=== PATIENT | female | born 1945 | race Caucasian/White ===

== ENCOUNTER 2022-04-22 03:17 | Inpatient (IN) ==
[2022-04-22] MEDS ORDERED: traMADol 50 MG TABLET PO ONE (03:50)
[2022-04-22] MEDS ORDERED: METHOCARBAMOL 500 MG TABLET PO ONE (03:50)
[2022-04-22] MEDS ORDERED: KETOROLAC 60 MG/2 ML VIAL IM ONE (03:50)
[2022-04-22] MEDS ORDERED: ACETAMINOPHEN 325 MG TABLET PO ONE (03:50)
--- NOTE | 2022-04-22 04:01 | Emergency Department Note ---
HPI General Chief complaint: Extremity Injury, Lower Stated complaint: hip, back and legs pain Time Seen by Provider: 04/22/22 03:21 Source: patient Mode of arrival: wheelchair Limitations: no limitations History of Present Illness HPI Narrative: Narrative: This is a 77-year-old female with a history of SI pain and lower back pain presents to the emergency department with worsening pain in her legs. She reports she has pain in her lower back, pelvis and thighs. It radiates down the front of her thighs. She denies any new focal weakness but states she has limitations secondary to her pain. She denies any bowel or bladder incontinence, no fevers or chills. Patient did have an MRI about 10 days ago Which showed multilevel. Multilevel facet arthropathy and discogenic disease most pronounced at L4 and L5 there was a left sacral insufficiency fracture and chronic superior endplate fracture of L5. Patient saw interventional pain consultants 2 days ago and was given a Toradol injection. Patient is concerned that she can no longer take care of herself and wants to be placed in a penitentiary. Patient's sister has been trying to help with states she needs more advanced professional help with her activities of daily living. The patient's primary care provider sent referrals for nursing homes. Patient states she came in tonight because she cannot go to the bathroom on her own. Patient has been taking Robaxin and tramadol for her symptoms she did not take her dose tonight. Patient denies any new falls since her MRI bowel or bladder incontinence. Patient does report that she has been somewhat constipated. Related Data Home Medications Medication Instructions Recorded Confirmed acetaminophen 500 mg capsule See Rx Instructions PO PRN 02/02/21 04/22/22 cholecalciferol (vitamin D3) 50 50 mcg PO QDAY 02/02/21 04/22/22 mcg (2,000 unit) capsule coenzyme Q10 100 mg capsule 200 mg PO BID 02/02/21 04/22/22 docusate sodium [Stool Softener] 1 ea PO QDAY 02/02/21 04/22/22 losartan 100 1 tab PO QDAY 02/02/21 04/22/22 mg-hydrochlorothiazide 25 mg tablet omeprazole 40 mg capsule,delayed 40 mg PO QDAY 02/02/21 04/22/22 release sennosides-docusate sodium 1 tab-cap PO .EOD 02/02/21 04/22/22 [Senokot-S] sucralfate 1 gram tablet 1 g PO QID 02/02/21 04/22/22 pravastatin 40 mg tablet 40 mg PO DAILY 04/22/22 04/22/22 simethicone 80 mg chewable tablet 80 mg PO QHS PRN Gastric Reflux 04/22/22 0 04/22/22 (Gas Relief (simethicone)) tramadol 50 mg tablet 50 mg PO QIDP PRN Pain 04/22/22 04/22/22 Previous Rx's Medication Instructions Recorded methocarbamol 750 mg tablet 750 mg PO BID PRN muscle spasm #90 11/17/21 tabs Allergies Allergy/AdvReac Type Severity Reaction Status Date / Time codeine Allergy Intermediate SOB/asthma Verified 04/24/22 06:58 morphine Allergy Intermediate SOB/asthma Verified 04/24/22 06:58 aspirin Allergy Mild skin rash Verified 04/24/22 06:58 bacitracin Allergy Mild skin rash Verified 04/24/22 06:58 [From Neosporin ([id number])] bupivacaine Allergy Mild skin rash Verified 04/24/22 06:58 cefazolin Allergy Mild skin rash Verified 04/24/22 06:58 doxycycline Allergy Mild skin rash Verified 04/24/22 06:58 [id number] [From VoSol-HC] Allergy Mild skin Verified 04/24/22 06:58 rash/hives griseofulvin Allergy Mild skin rash Verified 04/24/22 06:58 [From Grifulvin V] hydrocortisone Allergy Mild skin Verified 04/24/22 06:58 [From VoSol-HC] rash/hives hydromorphone [From Dilaudid] Allergy Mild skin rash Verified 04/24/22 06:58 ketoconazole Allergy Mild rash Verified 04/24/22 06:58 metoclopramide [From Reglan] Allergy Mild skin Verified 04/24/22 06:58 rash/tongue movements Neomycin Allergy Mild skin rash Verified 04/24/22 06:58 nystatin [From Mycostatin] Allergy Mild skin rash Verified 04/24/22 06:58 ofloxacin [From Floxin] Allergy Mild skin rash Verified 04/24/22 06:58 oxycodone Allergy Mild skin rash Verified 04/24/22 06:58 pentazocine [From Talwin] Allergy Mild skin rash Verified 04/24/22 06:58 piroxicam [From Feldene] Allergy Mild skin rash Verified 04/24/22 06:58 polymyxin B Allergy Mild skin rash Verified 04/24/22 06:58 [From Neosporin ([id number])] promethazine Allergy Mild skin rash Verified 04/24/22 06:58 Sulfa (Sulfonamide Allergy Mild skin Verified 04/24/22 06:58 Antibiotics) rash/hives tobramycin Allergy Mild jg Verified 04/24/22 06:58 rash/eye problems trolamine salicylate Allergy Mild skin rash Verified 04/24/22 06:58 [From Aspercreme] clindamycin Allergy Unknown unknown Verified 04/22/22 03:30 metronidazole Allergy Unknown unknown Verified 04/22/22 03:30 Review of Systems ROS ROS Narrative: Narrative: All systems ED: reviewed and negative except as stated. [facility] Narrative Patient History Narrative: Narrative: Medical/Surgical/Family History All Active Problems (Updated 04/22/22 @ 07:08 by Craig Olea MD) Cramp in muscle (Acute) Acute UTI (Acute) Acute hyponatremia (Acute) Acute hypokalemia (Acute) Sacroiliitis (Acute) Sacroiliac joint pain (Chronic) Facet arthropathy (Chronic) Scoliosis (Chronic) Degenerative disc disease (Chronic) Lumbar spondylosis (Chronic) Heartburn (Chronic) High blood pressure (Chronic) Bronchitis (Chronic) Left buttock pain (Chronic) Dislocation of left shoulder joint (Chronic) Hernia (Chronic) Heel spur (Chronic) Sciatica (Chronic) Low back pain (Chronic) Medical History (Updated 04/22/22 @ 07:08 by Craig Olea MD) Bronchitis Degenerative disc disease Dislocation of left shoulder joint Facet arthropathy Heartburn Heel spur Hernia High blood pressure Left buttock pain Low back pain Lumbar spondylosis Sacroiliac joint pain Sciatica Scoliosis Surgical History (Updated 02/02/21 @ 10:40 by Vilma Muñoz) History of cholecystectomy (~1977) History of foot surgery (~1974) 1974 heel spur removal, bilateral; 2004 left foot tendon repair History of hernia repair (~2004) 2004; 2008; 2012 History of shoulder surgery 2003 left; 2010 right History of sinus surgery 1980s Garrett Aleksey/left History of total left knee replacement (TKR) (~2000) History of total right knee replacement (~2005) History of tubal ligation (~1979) History of varicose vein ligation (~1998) Family History (Updated 02/02/21 @ 10:53 by Vilma Muñoz) Mother High blood pressure Arthritis Father High blood pressure Arthritis Heart disease Brother High blood pressure Arthritis Heart disease Sister High blood pressure Arthritis Diabetes Family/Other Heart disease Grandparent Social History Smoking Status: Never smoker Alcohol Intake Frequency: does not drink Substance Use: does not use Exam Narrative Narrative: Narrative: Vital signs noted General: Awake. Alert. Appears tired and frustrated HEENT: NCAT Neck: No cervical spinal tenderness to palpation Cardiovascular: RRR. No murmur. No rubs. No gallops. Respiratory: No respiratory distress. Breath sounds equal. Lungs clear. Gastrointestinal: Soft. No tenderness Musculoskeletal: Tenderness to palpation in the anterior thighs, there is pain pelvis her pelvis is stable she has tenderness to palpation throughout the midline and paraspinal muscles of the lumbar spine her strength at the ankle knee and hip is symmetric sensation to light touch is intact Skin: Loose redundant skin and soft tissue General Limitations: no limitations Course Vital Signs Vital signs: Vital Signs Temperature 97.6 F 04/22/22 03:20 Pulse Rate 100 H 04/22/22 03:20 Respiratory Rate 20 04/22/22 03:20 Blood Pressure 133/94 04/22/22 03:20 Pulse Oximetry (%) 100 04/22/22 03:20 Oxygen Delivery Method 04/22/22 03:20 Temperature 97.7 F 04/24/22 04:00 Pulse Rate 77 04/24/22 04:00 Respiratory Rate 16 04/24/22 04:00 Blood Pressure 93/62 04/24/22 04:00 Pulse Oximetry (%) 98 04/24/22 04:00 Oxygen Delivery Method 04/24/22 04:00 [facility] Narrative Medical decision making narrative: Narrative: Patient presents to the emergency department with bilateral thigh pain and back pain other complaints of pain. She reports that she is having a difficult time caring for herself and her sister who is bedside expressed of the same concerns. Patient had recent MRI which was reviewed there is been no other traumatic events since his MRI was obtained. The MRI is without any evidence of cord compression or cauda equina. Given her worsening weakness and cramping- like pain medical and metabolic work-up was initiated. Patient was found to be hyponatremic at 119 and hypokalemic at 2.7 her magnesium is also 1.5. I do feel that these could be exacerbating the patient's underlying chronic pain and muscle cramping. The cause of her hyponatremia is unclear she may be slightly hypovolemic but not severely dehydrated. I wonder if the tramadol that she was recently prescribed could be a culprit. Patient is not on hydrochlorothiazide or any other diuretics. In addition patient's urinalysis concerning for infection she is without systemic symptoms but I do feel that given her weakness and age she should be treated. She is prescribed Macrobid for this. Patient will be admitted to the hospitalist for further work-up and evaluation of her hyponatremia, hypokalemia and lower extremity pain. Lab Data Result diagrams: 04/22/22 04:28 04/24/22 05:07 Labs: Lab Results 04/22/22 04/22/22 04/22/22 Range/Units 04:28 04:28 04:28 WBC 8.9 (4.5-11.0) K/mcL RBC 4.26 (3.59-5.38) M/mcL Hgb 13.7 (11.2-15.7) g/dL Hct 37.7 (34.1-44.9) % POC Hct (36-48) MCV 88.5 (80.0-100.0) fL MCH 32.2 (26.0-34.0) pg MCHC 36.3 H (31.0-36.0) g/dL RDW 11.8 (11.5-14.5) % Plt Count 369 (140-440) K/mcL MPV 7.9 (7.4-10.4) fL Immature Gran % (Auto) 1.6 H (0.0-0.5) % Neut % (Auto) 76.9 (38.0-78.0) % Lymph % (Auto) 10.4 L (15.5-49.0) % [place] % (Auto) 9.8 (1.0-12.0) % Eos % (Auto) 1.0 (0.0-7.0) % Baso % (Auto) 0.3 (0.0-2.0) % Lymph # (Auto) 0.92 L (1.50-4.80) K/mcL [place] # (Auto) 0.87 (0.10-0.90) K/mcL Eos # (Auto) 0.09 (0.00-0.70) K/mcL Baso # (Auto) 0.03 (0.00-0.30) K/mcL Immature Gran # 0.14 H (0.00-0.05) K/mcl Absolute Neutrophils 6.96 (1.80-8.00) K/mcL POC Sodium (133-145) POC Potassium (3.3-5.1) POC Chloride (96-108) POC Total CO2 (22-30) POC BUN (6-20) POC Creatinine (0.6-1.2) POC Glucose (70-105) Osmolality 257 L (280-300) mOSM/kg POC WB Ioniz Calcium (1.16-1.32) Magnesium 1.5 L (1.6-2.5) mg/dL Total Bilirubin 0.6 (0.1-1.0) mg/dL Direct Bilirubin 0.2 (<0.3) mg/dL AST 16 (<32) U/L ALT 11 (<40) U/L Alkaline Phosphatase 173 H (39-117) U/L Total Protein 6.4 (5.9-8.4) gm/dL Albumin 4.0 (3.2-5.2) gm/dL Globulin 2.4 (2.2-3.7) gm/dL Urine Color Urine Appearance (Clear) Urine pH (5.0-9.0) Ur Specific Bath (1.000-1.035) Urine Protein (Negative) mg/dL Urine Glucose (UA) (Negative) mg/dL Urine Ketones (Negative) mg/dL Urine Occult Blood (Negative) mg/dL Urine Nitrate (Negative) Urine Bilirubin (Negative) mg/dL Urine Urobilinogen mg/dL Ur Leukocyte Esterase (Negative) /uL Urine RBC (0-3) /hpf Urine WBC (0-4) /hpf Ur Squamous Epith Cells (0-4) /hpf Ur Transition Epith Cell (0-2) /hpf Amorphous Crystals (None) /hpf Urine Bacteria (0) /hpf Urine Mucus (None) /hpf Ur Culture Indicated? Urine Osmolality (80-1000) mOSM/kg Ur Random Creatinine (28.0-217.0) mg/dL Ur Random Sodium mmol/L 04/22/22 04/22/22 04/22/22 Range/Units 04:31 04:31 04:31 WBC (4.5-11.0) K/mcL RBC (3.59-5.38) M/mcL Hgb (11.2-15.7) g/dL Hct (34.1-44.9) % POC Hct (36-48) MCV (80.0-100.0) fL MCH (26.0-34.0) pg MCHC (31.0-36.0) g/dL RDW (11.5-14.5) % Plt Count (140-440) K/mcL MPV (7.4-10.4) fL Immature Gran % (Auto) (0.0-0.5) % Neut % (Auto) (38.0-78.0) % Lymph % (Auto) (15.5-49.0) % [place] % (Auto) (1.0-12.0) % Eos % (Auto) (0.0-7.0) % Baso % (Auto) (0.0-2.0) % Lymph # (Auto) (1.50-4.80) K/mcL [place] # (Auto) (0.10-0.90) K/mcL Eos # (Auto) (0.00-0.70) K/mcL Baso # (Auto) (0.00-0.30) K/mcL Immature Gran # (0.00-0.05) K/mcl Absolute Neutrophils (1.80-8.00) K/mcL POC Sodium (133-145) POC Potassium (3.3-5.1) POC Chloride (96-108) POC Total CO2 (22-30) POC BUN (6-20) POC Creatinine (0.6-1.2) POC Glucose (70-105) Osmolality (280-300) mOSM/kg POC WB Ioniz Calcium (1.16-1.32) Magnesium (1.6-2.5) mg/dL Total Bilirubin (0.1-1.0) mg/dL Direct Bilirubin (<0.3) mg/dL AST (<32) U/L ALT (<40) U/L Alkaline Phosphatase (39-117) U/L Total Protein (5.9-8.4) gm/dL Albumin (3.2-5.2) gm/dL Globulin (2.2-3.7) gm/dL Urine Color Yellow Urine Appearance Hazy A (Clear) Urine pH 5.0 (5.0-9.0) Ur Specific Bath 1.015 (1.000-1.035) Urine Protein Negative (Negative) mg/dL Urine Glucose (UA) Negative (Negative) mg/dL Urine Ketones 5 A (Negative) mg/dL Urine Occult Blood 0.03 (Negative) mg/dL Urine Nitrate Negative (Negative) Urine Bilirubin Negative (Negative) mg/dL Urine Urobilinogen Negative mg/dL Ur Leukocyte Esterase 500 A (Negative) /uL Urine RBC 7 H (0-3) /hpf Urine WBC 64 H (0-4) /hpf Ur Squamous Epith Cells 1 (0-4) /hpf Ur Transition Epith Cell 2 (0-2) /hpf Amorphous Crystals Few A (None) /hpf Urine Bacteria None (0) /hpf Urine Mucus Few A (None) /hpf Ur Culture Indicated? yes Urine Osmolality 400 (80-1000) mOSM/kg Ur Random Creatinine 73.3 (28.0-217.0) mg/dL Ur Random Sodium 32 mmol/L 04/22/22 Range/Units 04:33 WBC (4.5-11.0) K/mcL RBC (3.59-5.38) M/mcL Hgb (11.2-15.7) g/dL Hct (34.1-44.9) % POC Hct 40.0 (36-48) MCV (80.0-100.0) fL MCH (26.0-34.0) pg MCHC (31.0-36.0) g/dL RDW (11.5-14.5) % Plt Count (140-440) K/mcL MPV (7.4-10.4) fL Immature Gran % (Auto) (0.0-0.5) % Neut % (Auto) (38.0-78.0) % Lymph % (Auto) (15.5-49.0) % [place] % (Auto) (1.0-12.0) % Eos % (Auto) (0.0-7.0) % Baso % (Auto) (0.0-2.0) % Lymph # (Auto) (1.50-4.80) K/mcL [place] # (Auto) (0.10-0.90) K/mcL Eos # (Auto) (0.00-0.70) K/mcL Baso # (Auto) (0.00-0.30) K/mcL Immature Gran # (0.00-0.05) K/mcl Absolute Neutrophils (1.80-8.00) K/mcL POC Sodium 119 L (133-145) POC Potassium 2.8 L* (3.3-5.1) POC Chloride 81 L (96-108) POC Total CO2 27.0 (22-30) POC BUN 18 (6-20) POC Creatinine 0.8 (0.6-1.2) POC Glucose 105 (70-105) Osmolality (280-300) mOSM/kg POC WB Ioniz Calcium 1.11 L (1.16-1.32) Magnesium (1.6-2.5) mg/dL Total Bilirubin (0.1-1.0) mg/dL Direct Bilirubin (<0.3) mg/dL AST (<32) U/L ALT (<40) U/L Alkaline Phosphatase (39-117) U/L Total Protein (5.9-8.4) gm/dL Albumin (3.2-5.2) gm/dL Globulin (2.2-3.7) gm/dL Urine Color Urine Appearance (Clear) Urine pH (5.0-9.0) Ur Specific [place] (1.000-1.035) Urine Protein (Negative) mg/dL Urine Glucose (UA) (Negative) mg/dL Urine Ketones (Negative) mg/dL Urine Occult Blood (Negative) mg/dL Urine Nitrate (Negative) Urine Bilirubin (Negative) mg/dL Urine Urobilinogen mg/dL Ur Leukocyte Esterase (Negative) /uL Urine RBC (0-3) /hpf Urine WBC (0-4) /hpf Ur Squamous Epith Cells (0-4) /hpf Ur Transition Epith Cell (0-2) /hpf Amorphous Crystals (None) /hpf Urine Bacteria (0) /hpf Urine Mucus (None) /hpf Ur Culture Indicated? Urine Osmolality (80-1000) mOSM/kg Ur Random Creatinine (28.0-217.0) mg/dL Ur Random Sodium mmol/L Discharge Plan Patient/Caregiver Discharge Instructions Pt seen by DIRECTOR OF TECHNOLOGY/PA only: No Clinical Impression: Low back pain, Cramp in muscle, Acute UTI, Acute hyponatremia, Acute hypokalemia Patient Disposition: Xfer As Inpt ([facility]) Condition: Fair Discharge Date/Time: 04/22/22 08:57
[2022-04-22 04:38] LABS: POC Calcium, Ionized 1.11 (1.16-1.32); POC Creatinine 0.8 (0.6-1.2); POC Potassium 2.8 (3.3-5.1)
[2022-04-22 05:19] LABS: Basophils # (Auto) 0.03 K/mcL (0.00-0.30); Basophils % (Auto) 0.3 % (0.0-2.0); Eosinophils # (Auto) 0.09 K/mcL (0.00-0.70); Hematocrit 37.7 % (34.1-44.9); Hemoglobin 13.7 g/dL (11.2-15.7); Lymphocytes # (Auto) 0.92 K/mcL (1.50-4.80); Lymphocytes % (Auto) 10.4 % (15.5-49.0); Mean Cell Volume 88.5 fL (80.0-100.0); Mean Corpuscular HGB Conc 36.3 g/dL (31.0-36.0); Mean Platelet Volume 7.9 fL (7.4-10.4); Monocytes # (Auto) 0.87 K/mcL (0.10-0.90); Monocytes % (Auto) 9.8 % (1.0-12.0); Neutrophils % (Auto) 76.9 % (38.0-78.0); Platelet Count 369 K/mcL (140-440); RBC 4.26 M/mcL (3.59-5.38); Red Cell Distribution Width 11.8 % (11.5-14.5); WBC 8.9 K/mcL (4.5-11.0)
[2022-04-22] MEDS ORDERED: POTASSIUM CHLORIDE 20 MEQ PACKET PO ONE (05:25)
[2022-04-22] MEDS ORDERED: 0.9 % SODIUM CHLORIDE 1,000 ML IV ONE (05:25)
[2022-04-22 05:27] LABS: Appearance,Urine HAZY (Clear); Bilirubin,Urine Negative (Negative); Color,Urine YELLOW; Culture Indicated,Urine yes; Glucose,Urine (UA) Negative (Negative); Ketones,Urine 5 mg/dL (Negative); Leukocyte Esterase,Urine 500 /uL (Negative); Mucus,Urine FEW /hpf; Nitrate,Urine Negative (Negative); Protein,Urine Negative (Negative); Specific Gravity,Urine 1.015 (1.000-1.035); Urine Amorphous Crystals FEW /hpf; Urine Blood 0.03 mg/dL (Negative); Urine RBC 7 /hpf (0-3); Urine Squamous Epithelial Cell 1 /hpf (0-4); Urine Transitional Epi Cells 2 /hpf (0-2); Urine WBC 64 /hpf (0-4); Urobilinogen,Urine Negative
[2022-04-22] MEDS ORDERED: NITROFURANTOIN SR 100 MG CAPSULE PO ONE (05:32)
[2022-04-22 05:36] LABS: Bilirubin,Direct 0.2 mg/dL (<0.3); Bilirubin,Total 0.6 mg/dL (0.1-1.0); Globulin 2.4 gm/dL (2.2-3.7)
[2022-04-22 06:36] LABS: Creatinine,Urine Random 73.3 mg/dL (28.0-217.0)
[2022-04-22] MEDS ORDERED: MAGNESIUM SULFATE 2 GM/50 ML BAG IV ONE (06:45)
--- NOTE | 2022-04-22 10:26 | Internal Med History&Physical ---
HPI History of Present Illness Patient information: Note initiated : 04/22/22 at 10:22 am Service Date, if different from initiated Date: [] Patient: Shelby Cifuentes a 77 y/o F admitted on 04/22/22 for hip, back and legs pain. Chief Complaint: [] History of present illness: Ms. Cifuentes is a 77 year old F With history of hip pelvic and back pain for the past couple weeks patient does follow with pain clinic. Patient has increasing back pain that goes down bilateral legs. Patient denies bowel or bladder incontinence she had an MRI 10 days ago showed arthropathy. And some sacral insufficiency fractures. Patient saw pain clinic 2 days ago and was given Toradol injection. Patient has been concern that she can no longer care for self and she has been working on placement with her PCP and family. Work-up in the ER revealed that she was hyponatremic 119 and hypokalemic at 2.7 as well as low mag. May be contributing some to some of her cramping. She is given potassium magnesium and started on fluids. Also concern for UTI. Review of Systems: Pertinent positives as above. Denies headache/fever/chills/nausea/vomiting/chest or abdominal pain/cough/dyspnea/diarrhea. Remaining 10 point review of system reviewed negative PFSH PFSH All Active Problems (Updated 04/22/22 @ 07:08 by Craig Olea MD) Cramp in muscle (Acute) Acute UTI (Acute) Acute hyponatremia (Acute) Acute hypokalemia (Acute) Sacroiliitis (Acute) Sacroiliac joint pain (Chronic) Facet arthropathy (Chronic) Scoliosis (Chronic) Degenerative disc disease (Chronic) Lumbar spondylosis (Chronic) Heartburn (Chronic) High blood pressure (Chronic) Bronchitis (Chronic) Left buttock pain (Chronic) Dislocation of left shoulder joint (Chronic) Hernia (Chronic) Heel spur (Chronic) Sciatica (Chronic) Low back pain (Chronic) Medical History (Updated 04/22/22 @ 07:08 by Craig Olea MD) Bronchitis Degenerative disc disease Dislocation of left shoulder joint Facet arthropathy Heartburn Heel spur Hernia High blood pressure Left buttock pain Low back pain Lumbar spondylosis Sacroiliac joint pain Sciatica Scoliosis Surgical History (Updated 02/02/21 @ 10:40 by Vilma Muñoz) History of cholecystectomy (~1977) History of foot surgery (~1974) 1974 heel spur removal, bilateral; 2004 left foot tendon repair History of hernia repair (~2004) 2004; 2007; 2011 History of shoulder surgery 2003 left; 2010 right History of sinus surgery 1980s Garrett Aleksey/left History of total left knee replacement (TKR) (~2000) History of total right knee replacement (~2005) History of tubal ligation (~1979) History of varicose vein ligation (~1998) Family History (Updated 02/02/21 @ 10:53 by Vilma Muñoz) Mother High blood pressure Arthritis Father High blood pressure Arthritis Heart disease Brother High blood pressure Arthritis Heart disease Sister High blood pressure Arthritis Diabetes Family/Other Heart disease Grandparent Social History (Updated 02/04/21 @ 16:16 by Estlele Skaggs) marital status: single education level: high school occupational status: retired smoking status: Never smoker alcohol intake frequency: does not drink substance use type: does not use MEDS/ALLERGIES Home Medications and Allergies Home Medications Medication Instructions Recorded Confirmed Type acetaminophen 500 mg capsule See Rx Instructions PO PRN 02/02/21 04/22/22 History cholecalciferol (vitamin D3) 50 50 mcg PO QDAY 02/02/21 04/22/22 History mcg (2,000 unit) capsule coenzyme Q10 100 mg capsule 200 mg PO BID 02/02/21 04/22/22 History docusate sodium [Stool Softener] 1 ea PO QDAY 02/02/21 04/22/22 History losartan 100 1 tab PO QDAY 02/02/21 04/22/22 History mg-hydrochlorothiazide 25 mg tablet omeprazole 40 mg capsule,delayed 40 mg PO QDAY 02/02/21 04/22/22 History release sennosides-docusate sodium 1 tab-cap PO .EOD 02/02/21 04/22/22 History [Senokot-S] sucralfate 1 gram tablet 1 g PO QID 02/02/21 04/22/22 History methocarbamol 750 mg tablet 750 mg PO BID PRN muscle spasm #90 11/17/21 04/22/22 Rx tabs pravastatin 40 mg tablet 40 mg PO DAILY 04/22/22 04/22/22 History simethicone 80 mg chewable tablet 80 mg PO QHS PRN Gastric Reflux 04/22/22 04/22/22 History (Gas Relief (simethicone)) tramadol 50 mg tablet 50 mg PO QIDP PRN Pain 04/22/22 04/22/22 History Allergies Allergy/AdvReac Type Severity Reaction Status Date / Time aspirin Allergy Unknown skin rash Verified 04/22/22 03:30 bacitracin Allergy Unknown skin rash Verified 04/22/22 03:30 [From Neosporin ([id number])] bupivacaine Allergy Unknown skin rash Verified 04/22/22 03:30 cefazolin Allergy Unknown skin rash Verified 04/22/22 03:30 clindamycin Allergy Unknown unknown Verified 04/22/22 03:30 codeine Allergy Unknown SOB/asthma Verified 04/22/22 03:30 doxycycline Allergy Unknown skin rash Verified 04/22/22 03:30 [id number] [From VoSol-HC] Allergy Unknown skin Verified 04/22/22 03:30 rash/hives griseofulvin Allergy Unknown skin rash Verified 04/22/22 03:30 [From Grifulvin V] hydrocortisone Allergy Unknown skin Verified 04/22/22 03:30 [From VoSol-HC] rash/hives hydromorphone [From Dilaudid] Allergy Unknown skin rash Verified 04/22/22 03:30 ketoconazole Allergy Unknown rash Verified 04/22/22 03:30 metoclopramide [From Reglan] Allergy Unknown skin Verified 04/22/22 03:30 rash/tongue movements metronidazole Allergy Unknown unknown Verified 04/22/22 03:30 morphine Allergy Unknown SOB/asthma Verified 04/22/22 03:30 Neomycin Allergy Unknown skin rash Verified 04/22/22 03:30 nystatin [From Mycostatin] Allergy Unknown skin rash Verified 04/22/22 03:30 ofloxacin [From Floxin] Allergy Unknown skin rash Verified 04/22/22 03:30 oxycodone Allergy Unknown skin rash Verified 04/22/22 03:30 pentazocine [From Talwin] Allergy Unknown skin rash Verified 04/22/22 03:30 piroxicam [From Feldene] Allergy Unknown skin rash Verified 04/22/22 03:30 polymyxin B Allergy Unknown skin rash Verified 04/22/22 03:30 [From Neosporin ([id number])] promethazine Allergy Unknown skin rash Verified 04/22/22 03:30 Sulfa (Sulfonamide Allergy Unknown skin Verified 04/22/22 03:30 Antibiotics) rash/hives tobramycin Allergy Unknown jg Verified 04/22/22 03:30 rash/eye problems trolamine salicylate Allergy Unknown skin rash Verified 04/22/22 03:30 [From Aspercreme] EXAM Constitutional Vitals: Temp Pulse Resp BP Pulse Ox O2 Del Method 97.6 F 78 14 142/74 98 04/22/22 09:23 04/22/22 09:23 04/22/22 09:23 04/22/22 09:23 04/22/22 09:23 04/22/22 09:23 DATA Data Completed and Pending Labs: Labs from last 24 hours 04/22/22 04/22/22 04/22/22 04:33 04:31 04:31 WBC RBC Hgb Hct POC Hct 40.0 MCV MCH MCHC RDW Plt Count MPV Immature Gran % (Auto) Neut % (Auto) Lymph % (Auto) Granite % (Auto) Eos % (Auto) Baso % (Auto) Lymph # (Auto) Granite # (Auto) Eos # (Auto) Baso # (Auto) Immature Gran # Absolute Neutrophils POC Sodium 119 L POC Potassium 2.8 L* POC Chloride 81 L POC Total CO2 27.0 POC BUN 18 POC Creatinine 0.8 POC Glucose 105 Osmolality POC WB Ioniz Calcium 1.11 L Magnesium Total Bilirubin Direct Bilirubin AST ALT Alkaline Phosphatase Total Protein Albumin Globulin Urine Color Urine Appearance Urine pH Ur Specific Lang[place] Urine Protein Urine Glucose (UA) Urine Ketones Urine Occult Blood Urine Nitrate Urine Bilirubin Urine Urobilinogen Ur Leukocyte Esterase Urine RBC Urine WBC Ur Squamous Epith Cells Ur Transition Epith Cell Amorphous Crystals Urine Bacteria Urine Mucus Ur Culture Indicated? Urine Osmolality 400 Ur Random Creatinine 73.3 Ur Random Sodium 32 04/22/22 04/22/22 04/22/22 04:31 04:28 04:28 WBC RBC Hgb Hct POC Hct MCV MCH MCHC RDW Plt Count MPV Immature Gran % (Auto) Neut % (Auto) Lymph % (Auto) Granite % (Auto) Eos % (Auto) Baso % (Auto) Lymph # (Auto) Granite # (Auto) Eos # (Auto) Baso # (Auto) Immature Gran # Absolute Neutrophils POC Sodium POC Potassium POC Chloride POC Total CO2 POC BUN POC Creatinine POC Glucose Osmolality 257 L POC WB Ioniz Calcium Magnesium 1.5 L Total Bilirubin 0.6 Direct Bilirubin 0.2 AST 16 ALT 11 Alkaline Phosphatase 173 H Total Protein 6.4 Albumin 4.0 Globulin 2.4 Urine Color Yellow Urine Appearance Hazy A Urine pH 5.0 Ur Specific Langdon 1.015 Urine Protein Negative Urine Glucose (UA) Negative Urine Ketones 5 A Urine Occult Blood 0.03 Urine Nitrate Negative Urine Bilirubin Negative Urine Urobilinogen Negative Ur Leukocyte Esterase 500 A Urine RBC 7 H Urine WBC 64 H Ur Squamous Epith Cells 1 Ur Transition Epith Cell 2 Amorphous Crystals Few A Urine Bacteria None Urine Mucus Few A Ur Culture Indicated? yes Urine Osmolality Ur Random Creatinine Ur Random Sodium 04/22/22 04:28 WBC 8.9 RBC 4.26 Hgb 13.7 Hct 37.7 POC Hct MCV 88.5 MCH 32.2 MCHC 36.3 H RDW 11.8 Plt Count 369 MPV 7.9 Immature Gran % (Auto) 1.6 H Neut % (Auto) 76.9 Lymph % (Auto) 10.4 L Granite % (Auto) 9.8 Eos % (Auto) 1.0 Baso % (Auto) 0.3 Lymph # (Auto) 0.92 L Granite # (Auto) 0.87 Eos # (Auto) 0.09 Baso # (Auto) 0.03 Immature Gran # 0.14 H Absolute Neutrophils 6.96 POC Sodium POC Potassium POC Chloride POC Total CO2 POC BUN POC Creatinine POC Glucose Osmolality POC WB Ioniz Calcium Magnesium Total Bilirubin Direct Bilirubin AST ALT Alkaline Phosphatase Total Protein Albumin Globulin Urine Color Urine Appearance Urine pH Ur Specific [place] Urine Protein Urine Glucose (UA) Urine Ketones Urine Occult Blood Urine Nitrate Urine Bilirubin Urine Urobilinogen Ur Leukocyte Esterase Urine RBC Urine WBC Ur Squamous Epith Cells Ur Transition Epith Cell Amorphous Crystals Urine Bacteria Urine Mucus Ur Culture Indicated? Urine Osmolality Ur Random Creatinine Ur Random Sodium A/P Narrative A/P Narrative: A: *subactue on chronic Hyponatremia:2/2 hypovolemia and medications -sodium 119 on admit *other Electrolyte d/o (hypokalemia/hypomagnesemia): *Volume depletion: *chronic pain acute on chronic, back and thigh pain: *Left Sacral insuffiency fx/ L5 endplate fx: *Generalized weakness/deconditioning: *UTI: *HTN/HLD: *GERD: P: -IVF -Replete electrolytes -Follow-up closely with sodium -hold HCTZ for hyponatremia, cont ARB -pain control including robaxin, will trial pregabalin -Rocephin pending UC -Continue home pain medications and as needed IV -PT/OT -CM for placement -ppx: Lovenox/home PPI DNR Time Spent With Patient Time: Total time spent is greater than 50% in coordination of care (as documented) at patient's floor/unit and/or counseling patient: Total time spent with greater than 50% in coordination of care (as documented) at patient's floor/unit and/or counseling patient:: 50 - 70 minutes
[2022-04-22] MEDS ORDERED: SIMETHICONE 80 MG TAB.CHEW PO PRN (10:49)
[2022-04-22] MEDS ORDERED: morphine 4 MG/ML VIAL IV PRN (10:50)
[2022-04-22] MEDS ORDERED: IPRATROPIUM/ALBUTEROL 3 ML AMPUL.NEB NEB PRN (10:50)
[2022-04-22] MEDS ORDERED: ONDANSETRON 4 MG/2 ML VIAL IV PRN (10:50)
[2022-04-22] MEDS ORDERED: MAGNESIUM HYDROXIDE 30 ML ORAL.SUSP PO PRN (10:50)
[2022-04-22] MEDS ORDERED: POTASSIUM CHLORIDE 20 MEQ TABLET PO PRN ×2 (10:50)
[2022-04-22] MEDS ORDERED: POTASSIUM CHLORIDE 40 MEQ in DEXTROSE 5% IN WATER 500 ML IV PRN (10:50)
[2022-04-22] MEDS ORDERED: MAGNESIUM SULFATE 2 GM/50 ML BAG IV PRN (10:50)
[2022-04-22] MEDS ORDERED: POLYETHYLENE GLYCOL 3350 17 GM PACKET PO PRN (10:50)
[2022-04-22] MEDS ORDERED: hydrALAZINE 20 MG/ML VIAL IV PRN (10:50)
[2022-04-22] MEDS ORDERED: HYDROcodone/APAP 5/325MG TABLET PO PRN (10:50)
[2022-04-22] MEDS ORDERED: cefTRIAXone 1 GM in DEXTROSE 5% IN WATER 50 ML IV SCH (11:00)
[2022-04-22] MEDS ORDERED: POTASSIUM CHLORIDE 20 MEQ TABLET PO SCH ×2 (11:05→14:35)
[2022-04-22] MEDS ORDERED: traMADol 50 MG TABLET PO PRN (11:05)
[2022-04-22] MEDS: LOSARTAN 50 MG TABLET PO SCH (11:24)
[2022-04-22] MEDS: PREGABALIN 25 MG CAPSULE PO SCH ×2 (11:24→20:33)
[2022-04-22] MEDS: 0.9 % SODIUM CHLORIDE 1,000 ML IV SCH ×2 (11:25→20:38)
[2022-04-22] MEDS: cefTRIAXone 1 GM VIAL IV SCH (11:25)
[2022-04-22 13:20] LABS: POC Calcium, Ionized 1.12 (1.16-1.32); POC Creatinine 0.7 (0.6-1.2); POC Potassium 3.2 (3.3-5.1)
[2022-04-22] MEDS: SUCRALFATE 1 GM TABLET PO SCH ×3 (14:01→20:33)
[2022-04-22] MEDS: METHOCARBAMOL 750 MG TABLET PO SCH ×2 (14:01→20:33)
[2022-04-22] MEDS: 0.9 % SODIUM CHLORIDE 10 ML SYRINGE IV SCH ×2 (14:02→20:34)
[2022-04-22 18:45] LABS: POC Calcium, Ionized 1.14 (1.16-1.32); POC Creatinine 0.7 (0.6-1.2); POC Potassium 3.7 (3.3-5.1)
[2022-04-22] MEDS ORDERED: SODIUM CHLORIDE 1 GM TABLET PO SCH (19:25)
[2022-04-22] MEDS: SENNOSIDES/DOCUSATE SODIUM 1 TAB TABLET PO SCH (20:34)
[2022-04-23] MEDS: 0.9 % SODIUM CHLORIDE 10 ML SYRINGE IV SCH ×3 (05:16→20:03)
[2022-04-23] MEDS: PREGABALIN 25 MG CAPSULE PO SCH ×3 (05:36→20:03)
[2022-04-23 06:52] LABS: ALT/SGPT 10 U/L (<40); AST/SGOT 17 U/L (<32); Albumin 3.6 gm/dL (3.2-5.2); Albumin/Globulin Ratio 1.8 (1.0-2.3); Alkaline Phosphatase 167 U/L (39-117); Bilirubin,Direct < 0.2 mg/dL (0-0.3); Bilirubin,Total 0.4 mg/dL (0.1-1.0); Blood Urea Nitrogen 12 mg/dL (8-23); Calcium 8.9 mg/dL (8.6-10.4); Carbon Dioxide 24 mmol/L (22-30); Chloride 90 mmol/L (96-108); Glomerular Filtration Rate 89; Glucose 108 mg/dL (70-105); Lactate Dehydrogenase 198 U/L (135-225); Phosphorous 1.3 mg/dL (2.5-4.5); Triglycerides 91 mg/dL (<150); Uric Acid 2.7 mg/dL (2.5-8.0)
--- NOTE | 2022-04-23 08:13 | Internal Med Progress Note ---
SUBJECTIVE Subjective Patient information: Note initiated : 04/23/22 at 8:06 am Service Date, if different from initiated Date: [] Patient: Shelby Cifuentes a 77 y/o F admitted on 04/22/22 for hip, back and legs pain. Chief Complaint: [] Interval history: History of present illness: Ms. Cifuentes is a 77 year old F With history of hip pelvic and back pain for the past couple weeks patient does follow with pain clinic. Patient has increasing back pain that goes down bilateral legs. Patient denies bowel or bladder incontinence she had an MRI 10 days ago showed arthropathy. And some sacral insufficiency fractures. Patient saw pain clinic 2 days ago and was given Toradol injection. Patient has been concern that she can no longer care for self and she has been working on placement with her PCP and family. Work-up in the ER revealed that she was hyponatremic 119 and hypokalemic at 2.7 as well as low mag. May be contributing some to some of her cramping. She is given potassium magnesium and started on fluids. Also concern for UTI. 04/23 She complains of being cold and some leg cramping but otherwise no overnight event or new complaints. Sodium mildly improved but still quite low. Potassium much better. Phosphorus quite low. Constitutional Vitals: Vital Signs Temp Pulse Resp BP Pulse Ox O2 Del Method 97.5 F 104 H 16 104/61 98 04/23/22 04:00 04/23/22 04:00 04/23/22 04:00 04/23/22 04:00 04/23/22 04:00 04/23/22 04:00 Period Temp Pulse Resp BP Sys/Hamilton Pulse Ox O2 Del Method O2 Flow Rate Last 24 Hr 96.3 F-97.8 F 74-104 14-16 97-142/58-75 95-99 Room Air-Room Air Intake and Output 04/22/22 04/23/22 04/23/22 21:59 05:59 13:59 Intake Total 1242 120 Output Total 350 250 Balance 892 -130 Weight 75.892 kg Intake & Output: Intake & Output 04/22/22 04/23/22 04/23/22 21:59 05:59 13:59 Intake Total 1242 120 Output Total 350 250 Balance 892 -130 Weight 75.892 kg Intake: IV 922 Sodium Chloride 0.9% 1,000 ml @ 922 100 mls/hr IV .Q10H [facility] Rx#: [id number] Oral 120 120 GI Tube Flush 200 Output: Void Amount 350 250 Other: Meal Lunch Percent of Meal Consumed 75% Feeding Ability Independent Urine Appearance Clear Clear Urine Color Straw Straw Urine Odor Normal Exam: General: Alert, Awake, No acute Distress Eyes/N/T: EOMI, Head/Neck: neck supple, CV: RRR, No murmurs, Pulm: Clear b/l, no wheezing/rhonchi/rales Abd: soft, nontender, +BS x4 Ext: no clubbing/cyanosis/trace b/l LE edema Neuro: Alert, no focal deficits, moves all extremities, Skin: warm/dry OBJ DATA Labs CBC & Chem 7: 04/22/22 04:28 04/23/22 05:38 Labs: Abnormal Lab Results 04/23/22 04/22/22 04/22/22 05:38 18:43 13:18 MCHC Immature Gran % (Auto) Lymph % (Auto) Lymph # (Auto) Immature Gran # POC Sodium 121 L 120 L Sodium 123 L POC Potassium 3.2 L POC Chloride 84 L 82 L Chloride 90 L Glucose 108 H POC Glucose 130 H 116 H Osmolality POC WB Ioniz Calcium 1.14 L 1.12 L Phosphorus 1.3 L Magnesium Alkaline Phosphatase 167 H Total Protein 5.6 L Globulin 2.0 L Urine Appearance Urine Ketones Ur Leukocyte Esterase Urine RBC Urine WBC Amorphous Crystals Urine Mucus 04/22/22 04/22/22 04/22/22 04:33 04:31 04:28 MCHC Immature Gran % (Auto) Lymph % (Auto) Lymph # (Auto) Immature Gran # POC Sodium 119 L Sodium POC Potassium 2.8 L* POC Chloride 81 L Chloride Glucose POC Glucose Osmolality 257 L POC WB Ioniz Calcium 1.11 L Phosphorus Magnesium Alkaline Phosphatase Total Protein Globulin Urine Appearance Hazy A Urine Ketones 5 A Ur Leukocyte Esterase 500 A Urine RBC 7 H Urine WBC 64 H Amorphous Crystals Few A Urine Mucus Few A 04/22/22 04/22/22 04:28 04:28 MCHC 36.3 H Immature Gran % (Auto) 1.6 H Lymph % (Auto) 10.4 L Lymph # (Auto) 0.92 L Immature Gran # 0.14 H POC Sodium Sodium POC Potassium POC Chloride Chloride Glucose POC Glucose Osmolality POC WB Ioniz Calcium Phosphorus Magnesium 1.5 L Alkaline Phosphatase 173 H Total Protein Globulin Urine Appearance Urine Ketones Ur Leukocyte Esterase Urine RBC Urine WBC Amorphous Crystals Urine Mucus Meds: Medications Acetaminophen (Acetaminophen 325 Mg Tablet) 650 mg PO Q6HP PRN; Protocol PRN Reason: Per Pain Protocol/Fever > 101 Hydrocodone Bitart/Acetaminophen (Hydrocodone/Apap 5/325mg Tablet) 1 tab PO Q4HP PRN PRN Reason: PAIN LEVEL 3-6 Albuterol/Ipratropium (Ipratropium/Albuterol 3 Ml Ampul.Neb) 3 ml NEB Q4HP PRN PRN Reason: Shortness Of Breath Atorvastatin Calcium (Atorvastatin 10 Mg Tablet) [address] [facility] Ceftriaxone Sodium (Ceftriaxone 1 Gm Vial) [address] [facility] Last Admin: 04/22/22 11:25 Dose: 1 gm Enoxaparin Sodium (Enoxaparin 40 Mg/0.4 Ml Syringe) [address] [facility] Hydralazine HCl (Hydralazine 20 Mg/Ml Vial) 0 mg IV Q2HP PRN PRN Reason: Hypertension Potassium Chloride 40 meq/ (Dextrose) 520 mls @ 130 mls/hr IV UD PRN PRN Reason: Potassium < 3 Magnesium Sulfate (Magnesium Sulfate) 2 gm in 50 mls @ 50 mls/hr IV UD PRN PRN Reason: Magnesium </= 1.6 Losartan Potassium (Losartan 50 Mg Tablet) [address] [facility] Last Admin: 04/22/22 11:24 Dose: 100 mg Magnesium Hydroxide (Magnesium Hydroxide 30 Ml Oral.Susp) 30 ml PO DAILYP PRN PRN Reason: Constipation Methocarbamol (Methocarbamol 750 Mg Tablet) [address] [facility] Last Admin: 04/22/22 20:33 Dose: 750 mg Morphine Sulfate (Morphine 4 Mg/Ml Vial) 0 mg IV Q3HP PRN PRN Reason: Pain Omeprazole (Omeprazole 20 Mg Capsule) [address] [facility] Ondansetron HCl (Ondansetron 4 Mg/2 Ml Vial) 4 mg IV Q4HP PRN PRN Reason: Nausea And Vomiting Polyethylene Glycol (Polyethylene Glycol 3350 17 Gm Packet) 17 gm PO DAILYP PRN PRN Reason: Constipation Potassium Chloride (Potassium Chloride 20 Meq Tablet) 40 meq PO UD PRN PRN Reason: Potssium is 3-3.5 Potassium Chloride (Potassium Chloride 20 Meq Tablet) 40 meq PO UD PRN PRN Reason: Potassium < 3 Pregabalin (Pregabalin 25 Mg Capsule) [address] [facility] Last Admin: 04/23/22 05:36 Dose: Not Given Senna/Docusate Sodium (Sennosides/Docusate Sodium 1 Tab Tablet) [address] [facility] Last Admin: 04/22/22 20:34 Dose: 1 tab Simethicone (Simethicone 80 Mg Tab.Chew) 80 mg PO QHS PRN PRN Reason: Gastric Reflux Sodium Chloride (0.9 % Sodium Chloride 10 Ml Syringe) [address] [facility] Last Admin: 04/23/22 05:16 Dose: Not Given Sodium Chloride (Sodium Chloride 1 Gm Tablet) [address] [facility] Sucralfate (Sucralfate 1 Gm Tablet) [address] 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 >not improving nearly as expected with NS & holding hctz, urine studies would corroborate *other Electrolyte d/o (hypokalemia/hypomagnesemia/hypophosphatemia): *Volume depletion: improved *chronic pain acute on chronic, back and thigh pain: *Left Sacral insuffiency fx/ L5 endplate fx: *Generalized weakness/deconditioning: *UTI: *HTN/HLD: *GERD: P: -salt tabs, f/u sodium -Replete electrolytes -hold HCTZ for hyponatremia, cont ARB -pain control including robaxin, will trial pregabalin -Rocephin pending -Continue home pain medications and as needed IV -PT/OT -CM for placement -ppx: Lovenox/home PPI DNR Time Spent With Patient Time: Total time spent is greater than 50% in coordination of care (as documented) at patient's floor/unit and/or counseling patient: Total time spent with greater than 50% in coordination of care (as documented) at patient's floor/unit and/or counseling patient:: 25 - 35 minutes QUALITY VTE Deep Vein Thrombosis/Pulmonary Embolism Present on Admission: No
[2022-04-23] MEDS: OMEPRAZOLE 20 MG CAPSULE PO SCH (08:41)
[2022-04-23] MEDS: ENOXAPARIN 40 MG/0.4 ML SYRINGE SQ SCH (08:41)
[2022-04-23] MEDS: LOSARTAN 50 MG TABLET PO SCH (08:41)
[2022-04-23] MEDS: SUCRALFATE 1 GM TABLET PO SCH ×5 (08:41→20:03)
[2022-04-23] MEDS: METHOCARBAMOL 750 MG TABLET PO SCH (08:41)
[2022-04-23] MEDS: SODIUM CHLORIDE 1 GM TABLET PO SCH ×4 (08:41→20:03)
[2022-04-23] MEDS: ATORVASTATIN 10 MG TABLET PO SCH (08:41)
[2022-04-23] MEDS ORDERED: METHOCARBAMOL 750 MG TABLET PO PRN (09:22)
[2022-04-23] MEDS ORDERED: POTASSIUM PHOSPHATE 20 MEQ in DEXTROSE 5% IN WATER 250 ML IV SCH (09:45)
[2022-04-23] MEDS: PHOSPHORUS 250 MG TABLET PO SCH ×3 (10:51→20:03)
[2022-04-23] MEDS: cefTRIAXone 1 GM VIAL IV SCH (11:51)
[2022-04-23] MEDS: ACETAMINOPHEN 325 MG TABLET PO PRN (21:41)
[2022-04-24] MEDS: 0.9 % SODIUM CHLORIDE 10 ML SYRINGE IV SCH ×3 (04:22→21:18)
[2022-04-24] MEDS: PHOSPHORUS 250 MG TABLET PO SCH (04:22)
[2022-04-24 06:43] LABS: ALT/SGPT 10 U/L (<40); AST/SGOT 24 U/L (<32); Albumin 3.2 gm/dL (3.2-5.2); Albumin/Globulin Ratio 1.3 (1.0-2.3); Alkaline Phosphatase 189 U/L (39-117); Bilirubin,Direct < 0.2 mg/dL (0-0.3); Bilirubin,Total 0.3 mg/dL (0.1-1.0); Blood Urea Nitrogen 10 mg/dL (8-23); Calcium 9.2 mg/dL (8.6-10.4); Carbon Dioxide 22 mmol/L (22-30); Chloride 94 mmol/L (96-108); Globulin 2.4 gm/dL (2.2-3.7); Glomerular Filtration Rate 84; Glucose 125 mg/dL (70-105); Lactate Dehydrogenase 261 U/L (135-225); Phosphorous 2.7 mg/dL (2.5-4.5); Triglycerides 102 mg/dL (<150); Uric Acid 2.9 mg/dL (2.5-8.0)
[2022-04-24] MEDS: PREGABALIN 25 MG CAPSULE PO SCH ×2 (09:03→21:18)
[2022-04-24] MEDS: OMEPRAZOLE 20 MG CAPSULE PO SCH (09:03)
[2022-04-24] MEDS: SODIUM CHLORIDE 1 GM TABLET PO SCH ×3 (09:03→21:18)
[2022-04-24] MEDS: ATORVASTATIN 10 MG TABLET PO SCH (09:03)
[2022-04-24] MEDS: SUCRALFATE 1 GM TABLET PO SCH ×4 (09:03→21:18)
[2022-04-24] MEDS: LOSARTAN 50 MG TABLET PO SCH (09:04)
[2022-04-24] MEDS: ENOXAPARIN 40 MG/0.4 ML SYRINGE SQ SCH (09:07)
[2022-04-24] MEDS: cefTRIAXone 1 GM VIAL IV SCH (12:26)
--- NOTE | 2022-04-24 14:22 | Internal Med Progress Note ---
SUBJECTIVE Subjective Patient information: Note initiated : 04/24/22 at 2:20 pm Service Date, if different from initiated Date: [] Patient: Shelby Cifuentes 77 y/o F admitted on 04/22/22 for hip, back and legs pain. Chief Complaint: [Generalized weakness] Principal diagnosis: Hyponatremia, chronic pain syndrome, left sacral insufficiency fracture Interval history: Reviewed the patient's urine culture with her. She was complaining of some altered sensorium the other day. She was able to carry a conversation today. We discussed disposition. Constitutional Vitals: Vital Signs Temp Pulse Resp BP Pulse Ox O2 Del Method 97.7 F 94 H 20 90/62 99 04/24/22 11:57 04/24/22 11:57 04/24/22 11:57 04/24/22 11:57 04/24/22 11:57 04/24/22 11:57 Period Temp Pulse Resp BP Sys/Hamilton Pulse Ox O2 Del Method O2 Flow Rate Last 24 Hr 97.7 F-98 F 77-105 14-20 86-105/51-72 95-100 Room Air-Room Air Intake and Output 04/24/22 04/24/22 04/24/22 05:59 13:59 21:59 Intake Total 125 960 240 Output Total 250 Balance 125 960 -10 Intake & Output: Intake & Output 04/24/22 04/24/22 04/24/22 05:59 13:59 21:59 Intake Total 125 960 240 Output Total 250 Balance 125 960 -10 Intake: Oral 125 960 240 Output: Void Amount 250 Other: Meal Lunch Percent of Meal Consumed 50% Feeding Ability Independent Stool Size Large Moderate Stool Color Brown Brown Yellow Stool Consistency Liquid Soft Loose Loose # Bowel Movements 1 1 OBJ DATA Labs CBC & Chem 7: 04/22/22 04:28 04/24/22 05:07 Labs: Abnormal Lab Results 04/24/22 04/23/22 04/22/22 05:07 05:38 18:43 MCHC Immature Gran % (Auto) Lymph % (Auto) Lymph # (Auto) Immature Gran # POC Sodium 121 L Sodium 128 L 123 L POC Potassium POC Chloride 84 L Chloride 94 L 90 L Glucose 125 H 108 H POC Glucose 130 H Osmolality POC WB Ioniz Calcium 1.14 L Phosphorus 1.3 L Magnesium Alkaline Phosphatase 189 H 167 H Lactate Dehydrogenase 261 H Total Protein 5.6 L 5.6 L Globulin 2.0 L Urine Appearance Urine Ketones Ur Leukocyte Esterase Urine RBC Urine WBC Amorphous Crystals Urine Mucus 04/22/22 04/22/22 04/22/22 13:18 04:33 04:31 MCHC Immature Gran % (Auto) Lymph % (Auto) Lymph # (Auto) Immature Gran # POC Sodium 120 L 119 L Sodium POC Potassium 3.2 L 2.8 L* POC Chloride 82 L 81 L Chloride Glucose POC Glucose 116 H Osmolality POC WB Ioniz Calcium 1.12 L 1.11 L Phosphorus Magnesium Alkaline Phosphatase Lactate Dehydrogenase Total Protein Globulin Urine Appearance Hazy A Urine Ketones 5 A Ur Leukocyte Esterase 500 A Urine RBC 7 H Urine WBC 64 H Amorphous Crystals Few A Urine Mucus Few A 04/22/22 04/22/22 04/22/22 04:28 04:28 04:28 MCHC 36.3 H Immature Gran % (Auto) 1.6 H Lymph % (Auto) 10.4 L Lymph # (Auto) 0.92 L Immature Gran # 0.14 H POC Sodium Sodium POC Potassium POC Chloride Chloride Glucose POC Glucose Osmolality 257 L POC WB Ioniz Calcium Phosphorus Magnesium 1.5 L Alkaline Phosphatase 173 H Lactate Dehydrogenase Total Protein Globulin Urine Appearance Urine Ketones Ur Leukocyte Esterase Urine RBC Urine WBC Amorphous Crystals Urine Mucus Meds: Medications Acetaminophen (Acetaminophen 325 Mg Tablet) 650 mg PO Q6HP PRN; Protocol PRN Reason: Per Pain Protocol/Fever > 101 Last Admin: 04/23/22 21:41 Dose: 650 mg Hydrocodone Bitart/Acetaminophen (Hydrocodone/Apap 5/325mg Tablet) 1 tab PO Q4HP PRN PRN Reason: PAIN LEVEL 3-6 Albuterol/Ipratropium (Ipratropium/Albuterol 3 Ml Ampul.Neb) 3 ml NEB Q4HP PRN PRN Reason: Shortness Of Breath Atorvastatin Calcium (Atorvastatin 10 Mg Tablet) 10 mg PO DAILY [facility] Last Admin: 04/24/22 09:03 Dose: 10 mg Enoxaparin Sodium (Enoxaparin 40 Mg/0.4 Ml Syringe) 40 mg SQ DAILY [facility] Last Admin: 04/24/22 09:07 Dose: 40 mg Hydralazine HCl (Hydralazine 20 Mg/Ml Vial) 0 mg IV Q2HP PRN PRN Reason: Hypertension Potassium Chloride 40 meq/ (Dextrose) 520 mls @ 130 mls/hr IV UD PRN PRN Reason: Potassium < 3 Magnesium Sulfate (Magnesium Sulfate) 2 gm in 50 mls @ 50 mls/hr IV UD PRN PRN Reason: Magnesium </= 1.6 Losartan Potassium (Losartan 50 Mg Tablet) 100 mg PO DAILY [facility] Last Admin: 04/24/22 09:04 Dose: 100 mg Magnesium Hydroxide (Magnesium Hydroxide 30 Ml Oral.Susp) 30 ml PO DAILYP PRN PRN Reason: Constipation Methocarbamol (Methocarbamol 750 Mg Tablet) 1,000 mg PO TID PRN PRN Reason: spasm Morphine Sulfate (Morphine 4 Mg/Ml Vial) 0 mg IV Q3HP PRN PRN Reason: Pain Omeprazole (Omeprazole 20 Mg Capsule) 40 mg PO QDAY [facility] Last Admin: 04/24/22 09:03 Dose: 40 mg Ondansetron HCl (Ondansetron 4 Mg/2 Ml Vial) 4 mg IV Q4HP PRN PRN Reason: Nausea And Vomiting Polyethylene Glycol (Polyethylene Glycol 3350 17 Gm Packet) 17 gm PO DAILYP PRN PRN Reason: Constipation Last Admin: 04/23/22 08:41 Dose: 17 gm Potassium Chloride (Potassium Chloride 20 Meq Tablet) 40 meq PO UD PRN PRN Reason: Potssium is 3-3.5 Potassium Chloride (Potassium Chloride 20 Meq Tablet) 40 meq PO UD PRN PRN Reason: Potassium < 3 Pregabalin (Pregabalin 25 Mg Capsule) 25 mg PO BID [facility] Last Admin: 04/24/22 09:03 Dose: 25 mg Senna/Docusate Sodium (Sennosides/Docusate Sodium 1 Tab Tablet) 1 tab PO Q48H [facility] Last Admin: 04/22/22 20:34 Dose: 1 tab Simethicone (Simethicone 80 Mg Tab.Chew) 80 mg PO QHS PRN PRN Reason: Gastric Reflux Sodium Chloride (0.9 % Sodium Chloride 10 Ml Syringe) 10 ml IV Q8 [facility] Last Admin: 04/24/22 04:22 Dose: 10 ml Sodium Chloride (Sodium Chloride 1 Gm Tablet) 1 gm PO TID [facility] Last Admin: 04/24/22 09:03 Dose: 1 gm Sucralfate (Sucralfate 1 Gm Tablet) 1 gm PO QID [facility] Last Admin: 04/24/22 13:35 Dose: 1 gm Tramadol HCl (Tramadol 50 Mg Tablet) 50 mg PO QIDP PRN PRN Reason: Pain A/P Narrative A/P Narrative: 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 -Continue home pain medications and as needed IV -PT/OT -CM for placement -ppx: Lovenox/home PPI DNR Time Spent With Patient Time: Total time spent is greater than 50% in coordination of care (as documented) at patient's floor/unit and/or counseling patient: Total time spent with greater than 50% in coordination of care (as documented) at patient's floor/unit and/or counseling patient:: 25 - 35 minutes QUALITY VTE Deep Vein Thrombosis/Pulmonary Embolism Present on Admission: No
[2022-04-24] MEDS: ACETAMINOPHEN 325 MG TABLET PO PRN (21:17)
[2022-04-24] MEDS: SENNOSIDES/DOCUSATE SODIUM 1 TAB TABLET PO SCH (21:18)
[2022-04-25] MEDS: 0.9 % SODIUM CHLORIDE 10 ML SYRINGE IV SCH (06:18)
--- NOTE | 2022-04-25 08:55 | Discharge Summary ---
Discharge Provider Provider IMPORTANT FOLLOW-UP INFORMATION FOR PCP: Patient information: Note initiated : 04/25/22 at 8:53 am Service Date, if different from initiated Date: [] Patient: Shelby Cifuentes 77 y/o F admitted on 04/22/22 for hip, back and legs pain. Chief Complaint: hip, back and legs pain. Date of admission: 04/22/22 08:57 Discharge date: 04/25/22 Primary care physician: Paco Gan Admitting clinician: Ga Restrepo Consults: 04/22/22 Consult to Physician [CONS] Stat Comment: Consulting Provider: Ga Restrepo Reason For Exam: Physician to Consult Attending physician on discharge: [facility] COURSE Hospital Course Hospital course: Ms. Cifuentes is a 77 year old F With history of hip pelvic and back pain for the past couple weeks patient does follow with pain clinic. Patient has increasing back pain that goes down bilateral legs. Patient denies bowel or bladder incontinence she had an MRI 10 days ago showed arthropathy. And some sacral insufficiency fractures. Patient saw pain clinic 2 days ago and was given Toradol injection. Patient has been concern that she can no longer c are for self and she has been working on placement with her PCP and family. Work-up in the ER revealed that she was hyponatremic 119 and hypokalemic at 2.7 as well as low mag. May be contributing some to some of her cramping. She is given potassium magnesium and started on fluids. 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 >not improving nearly as expected with NS & holding hctz, urine studies would corroborate *other Electrolyte d/o (hypokalemia/hypomagnesemia/hypophosphatemia): *Volume depletion: improved *chronic pain acute on chronic, back and thigh pain: *Left Sacral insuffiency fx/ L5 endplate fx: *Generalized weakness/deconditioning: *UTI: *HTN/HLD: *GERD: P: -salt tabs, f/u sodium->can be discontinued prior to discharge, Na now 128 -Replete electrolytes -hold HCTZ for hyponatremia, cont ARB-> discontinued losartan due to lower BP -pain control including robaxin, will trial pregabalin -Rocephin pending UC->discontinued, as urine cx neg. -Continue home pain medications and as needed IV -PT/OT -CM for placement -ppx: Lovenox/home PPI 04/25: Overnight took over the care of this patient, she was medically optimized for discharge. Her sodium and electrolytes normalized. The patient's urine culture was negative and her antibiotics were discontinued. Her pain has been controlled with Hiko and Lyrica which were started on admission and will be continued upon discharge. She will be discharged to snf facility today for ongoing rehabilitation. She should follow-up with her primary care physician in 1 to 2 weeks time. Discharge diagnosis: Hyponatremia, weakness, LE pain Time Spent with Patient Time attestation: Total time spent providing and/or coordinating discharge services: Time spent: Greater than 30 minutes EXAM Constitutional Vitals: Temp Pulse Resp BP Pulse Ox O2 Del Method 97.6 F 78 20 89/58 98 04/25/22 08:00 04/25/22 08:00 04/25/22 08:00 04/25/22 08:00 04/25/22 08:00 04/25/22 08:00 General appearance: average body habitus Head Head exam: Present atraumatic, normal inspection and normocephalic Eye Eye exam: Present EOMI, normal appearance and PERRL; Absent conjunctival injection ENT ENT exam: Present normal exam; Absent mucous membranes dry Neck Neck exam: Present full ROM; Absent lymphadenopathy Respiratory Respiratory exam: Present normal respiratory exam and CTAB; Absent decreased breath sounds, respiratory distress or wheezes Cardiovascular Cardiovascular exam: Present normal rate and rhythm and RRR; Absent JVD GI/Abdominal GI/Abdominal exam: Present normal bowel sounds and soft; Absent diminished bowel sounds, distended, guarding, mass, rebound or tenderness Neurological Exam Neurological exam: Present alert, CN II-XII intact and oriented X3 Psychiatric Psychiatric exam: Present normal affect and normal mood Skin Skin exam: Present intact and warm; Absent erythema, pallor, petechiae or rash Discharge Data Data Completed and Pending Labs on day of discharge: Labs from last 24 hours 04/25/22 07:37 Sodium Pending Potassium Pending Chloride Pending Carbon Dioxide Pending Anion Gap Pending BUN Pending Creatinine Pending GFR Calculation Pending Glucose Pending Calcium Pending Discharge Plan Patient/Caregiver Discharge Instructions Activity: as per physical therapy Diet: Regular Diet Prescriptions: New hydrocodone-acetaminophen 5-325 mg Tablet 1 tab PO Q4HP PRN (Reason: Pain Level 3-6) Qty: 30 0RF pregabalin 25 mg Capsule 25 mg PO BID 30 Days Qty: 60 0RF Continued omeprazole 40 mg capsule,delayed release(DR/EC) 40 mg PO QDAY coenzyme Q10 100 mg capsule 200 mg PO BID docusate sodium 1 ea PO QDAY acetaminophen 500 mg capsule See Rx Instructions PO PRN Rx Instructions: PO as needed; sucralfate 1 gram tablet 1 g PO QID cholecalciferol (vitamin D3) 50 mcg (2,000 unit) capsule 50 mcg PO QDAY sennosides-docusate sodium 1 tab-cap PO .EOD methocarbamol 750 mg tablet 750 mg PO BID PRN (Reason: muscle spasm) Qty: 90 2RF Rx Instructions: 1-2 tabs as needed for muscle spasms. pravastatin 40 mg tablet 40 mg PO DAILY Label Comments: [NO ORIGINAL SIG] tramadol 50 mg tablet 50 mg PO QIDP PRN (Reason: Pain) Label Comments: [NO ORIGINAL SIG] simethicone [Gas Relief (simethicone)] 80 mg Tablet,Chewable 80 mg PO QHS PRN (Reason: Gastric Reflux) Discontinued losartan-hydrochlorothiazide 100-25 mg tablet 1 tab PO QDAY Follow Up Plan Follow up with: Paco Gan DO [Primary Care Provider] - Patient Disposition: Xfer SNF Prognosis: Good Rehab Potential: Good I certify that the patient requires SNF services: Yes Overall status at discharge: patient is progressing back to baseline Discharge Orders: Discharge Order (Routine); Ordered 04/25/22 Ordered By: Jevon COLMENARES VTE Deep Vein Thrombosis/Pulmonary Embolism Present on Admission: No
[2022-04-25] MEDS: OMEPRAZOLE 20 MG CAPSULE PO SCH (09:58)
[2022-04-25] MEDS: ATORVASTATIN 10 MG TABLET PO SCH (09:58)
[2022-04-25] MEDS: SUCRALFATE 1 GM TABLET PO SCH (09:58)
[2022-04-25] MEDS: PREGABALIN 25 MG CAPSULE PO SCH (09:58)
[2022-04-25] MEDS: ENOXAPARIN 40 MG/0.4 ML SYRINGE SQ SCH (09:59)
[2022-04-25] MEDS: SODIUM CHLORIDE 1 GM TABLET PO SCH (09:59)
[2022-04-25] MEDS: LOSARTAN 50 MG TABLET PO SCH (10:12)
== END 2022-04-25 10:40 | DRG 644 ==
LOC: ED 03:17 → MEDSUR 08:57
PROVIDERS: ADMIT Internal Medicine; ATTEND Student in an Organized Health Care Education/Training Program